=== PATIENT | female | born 1945 | race Caucasian/White ===

== ENCOUNTER → 2023-09-08 13:35 | Outpatient (REF) | payer OTHER, SELFPAY ==
[2023-09-08 15:43] LABS: % Basophils 0.6 % (0-2); % Immature Granulocytes 0.3 % (0-0.5); % Lymphocytes 8.8 % (20.5-51.1); % Monocytes 8.4 % (1.7-9.3); % Neutrophils 80.9 % (42.2-75.2); Absolute Basophils 0.1 10^3/uL (0-0.2); Absolute Eosinophils 0.1 10^3/uL (0-0.7); Absolute Lymphocytes 0.8 10^3/uL (1.2-3.4); Absolute Monocytes 0.8 10^3/uL (0.1-0.6); Absolute Neutrophils 7.7 10^3/uL (1.4-6.5); Hematocrit 31.9 % (37.0-47.0); Hemoglobin 11.4 g/dL (12.0-16.0); Mean Corp Hgb Conc. 35.7 g/dL (33.0-37.0); Mean Corpuscular Hgb 35.2 pg (27.0-31.0); Mean Corpuscular Volume 98.5 fL (81.0-99.0); Mean Platelet Volume 8.8 fL (7.4-10.4); Nucleated Red Blood Cells % 0 %; Platelet Count 225 10^3/uL (130-400); Red Blood Cell Count 3.24 10^6/uL (4.20-5.40); Red Cell Dist. Width 14.3 % (11.5-14.5); White Blood Cell Count 9.6 10^3/uL (4.8-10.8)
[2023-09-08 15:57] LABS: ALT (SGPT) 17 U/L (0-35); AST (SGOT) 24 U/L (14-36); Alkaline Phosphatase 69 U/L (38-126); Blood Urea Nitrogen 31 mg/dl (7-17); Carbon Dioxide 26 mmol/L (22-30); Chloride 97 mmol/L (98-107); Glucose 78 mg/dl (70-99); Potassium 3.9 mmol/L (3.5-5.1); Sodium 132 mmol/L (135-145); Total Bilirubin 0.6 mg/dl (0.2-1.3); Total Protein 6.4 g/dl (6.3-8.2); eGFR 32.81
== END ==
LOC: HWLAB 13:35
PROVIDERS: ATTENDING PHYSICIAN Internal Medicine Hematology & Oncology; FAMILY PHYSICIAN Family Medicine
DX: C14.8 Malignant neoplasm of overlapping sites of lip, oral cavity and pharynx (principal)
CPT/HCPCS: 36415; 80053; 83735; 85025

== ENCOUNTER → 2023-12-03 11:18 | Outpatient (REF) | payer OTHER, SELFPAY ==
[2023-12-03 14:48] LABS: % Basophils 0.5 % (0-2); % Eosinophils 2.8 % (0-6); % Immature Granulocytes 0.5 % (0-0.5); % Lymphocytes 12.8 % (20.5-51.1); % Neutrophils 74.4 % (42.2-75.2); Absolute Eosinophils 0.2 10^3/uL (0-0.7); Absolute Lymphocytes 0.7 10^3/uL (1.2-3.4); Absolute Monocytes 0.5 10^3/uL (0.1-0.6); Absolute Neutrophils 4.3 10^3/uL (1.4-6.5); Hematocrit 35.4 % (37.0-47.0); Hemoglobin 12.3 g/dL (12.0-16.0); Mean Corp Hgb Conc. 34.7 g/dL (33.0-37.0); Mean Corpuscular Hgb 31.9 pg (27.0-31.0); Mean Corpuscular Volume 91.9 fL (81.0-99.0); Nucleated Red Blood Cells % 0 %; Platelet Count 208 10^3/uL (130-400); Red Blood Cell Count 3.85 10^6/uL (4.20-5.40); Red Cell Dist. Width 12.2 % (11.5-14.5); White Blood Cell Count 5.8 10^3/uL (4.8-10.8)
[2023-12-03 15:23] LABS: ALT (SGPT) 26 U/L (0-35); AST (SGOT) 26 U/L (14-36); Albumin 4.3 g/dl (3.5-5.0); Alkaline Phosphatase 88 U/L (38-126); Blood Urea Nitrogen 23 mg/dl (7-17); Calcium 10.6 mg/dl (8.4-10.2); Carbon Dioxide 26 mmol/L (22-30); Chloride 100 mmol/L (98-107); Glucose 101 mg/dl (70-99); Potassium 3.8 mmol/L (3.5-5.1); Sodium 134 mmol/L (135-145); Total Bilirubin 0.7 mg/dl (0.2-1.3); Total Protein 6.7 g/dl (6.3-8.2); eGFR 46.05
== END ==
LOC: HWLAB 11:18
PROVIDERS: ATTENDING PHYSICIAN Internal Medicine Hematology & Oncology; FAMILY PHYSICIAN Family Medicine
DX: C14.8 Malignant neoplasm of overlapping sites of lip, oral cavity and pharynx (principal); E83.42 Hypomagnesemia
CPT/HCPCS: 36415; 80053; 85025

== ENCOUNTER → 2024-03-03 10:18 | Outpatient (REF) | payer OTHER, SELFPAY ==
[2024-03-03 10:30] VITALS: BP 144/67; BP_SYST 58
[2024-03-03 11:50] VITALS: BP 140/57
== END ==
LOC: RADI 10:18
PROVIDERS: ATTENDING PHYSICIAN Internal Medicine Hematology & Oncology
DX: Z45.2 Encounter for adjustment and management of vascular access device (principal); Z85.818 Personal history of malignant neoplasm of other sites of lip, oral cavity, and pharynx
CPT/HCPCS: 36590; 77001

== ENCOUNTER → 2024-03-18 10:41 | Outpatient (REF) | payer OTHER, SELFPAY ==
--- NOTE | 2024-03-18 11:00 | W.PN.UPDATE ---
Update Note
Progress Note Update
78 yo female presents for site check. She had a port removed on 03/03/24. She is on Eliquis and has substantial bruising. She noted a bump over the incision. She was sent but cardiology to evaluate for retained FB
PE: There is right chest wall bruising. There is a hematoma in the pocket. The area is indurated with central bogginess. No warmth or erythema to suggest infection
Images reviewed from port removal-No foreign body left in pocket
A/P: 78 yo female s/p port removal with port pocket hematoma
Recommend warm compresses to area-should resolve spontaneously. If symptoms worsen can consider aspiration although not ideal with pt still on Eliquis
== END ==
LOC: RADI 10:41
PROVIDERS: ATTENDING PHYSICIAN Radiology Vascular & Interventional Radiology; FAMILY PHYSICIAN Family Medicine
DX: L76.32 Postprocedural hematoma of skin and subcutaneous tissue following other procedure (principal); Y83.8 Other surgical procedures as the cause of abnormal reaction of the patient, or of later complication, without mention of misadventure at the time of the procedure; Z79.01 Long term (current) use of anticoagulants

== ENCOUNTER → 2024-05-19 11:32 | Outpatient (REF) | payer OTHER, SELFPAY ==
[2024-05-19 15:37] LABS: Blood Urea Nitrogen 28 mg/dl (7-17)
== END ==
LOC: HWLAB 11:32
PROVIDERS: ATTENDING PHYSICIAN Radiology Radiation Oncology; FAMILY PHYSICIAN Family Medicine
DX: C06.2 Malignant neoplasm of retromolar area (principal)
CPT/HCPCS: 36415; 82565; 84520

== ENCOUNTER → 2024-05-20 14:12 | Outpatient (REF) | payer OTHER, SELFPAY | LOC: HWRAD 14:12 | PROVIDERS: ATTENDING PHYSICIAN Radiology Radiation Oncology | DX: C06.2 Malignant neoplasm of retromolar area (principal) | CPT/HCPCS: 70491; Q9967 ==

== ENCOUNTER → 2024-11-07 16:41 | Outpatient (REF) | payer OTHER, SELFPAY | LOC: CLAB 16:41 | PROVIDERS: ATTENDING PHYSICIAN Otolaryngology | DX: R22.0 Localized swelling, mass and lump, head (principal) | CPT/HCPCS: 88305 ==

== ENCOUNTER 2025-02-12 14:01 | Emergency (ER) | payer OTHER, SELFPAY ==
[2025-02-12 14:11] VITALS: BP 157/69
--- NOTE | 2025-02-12 14:12 | ED.MUSCINJ ---
HPI-Injury
General
Chief Complaint: Fall
Source: patient
Exam Limitations: none
Time Seen by Provider: 02/12/25 14:05
History of Present Illness-Injury
Initial Injury comments:
79-year-old female presents via EMS from [facility] after a fall. She states she lost her balance going from room to room and fell. She complains of left wrist pain. She is on Eliquis and hit her head. She notes mild soreness to the left
side of her head. No loss of consciousness. No chest pain or shortness of breath. No other complaints at this time
Past History
Past History
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
ED Past Surgical History: Other (R power port)
Social History
Tobacco: Non-smoker
Alcohol: None
Phy Exam
Physical Exam
Physical Exam:
General: Well-appearing female no acute respiratory distress
HEENT: Normocephalic atraumatic no obvious scalp abrasion pupils equal round reactive to light
Heart: Regular rate and rhythm
Lungs: Clear
Musculoskeletal exam: Spine is nontender. Left wrist is swollen and slightly tender
No deformities to the legs with good range of motion
Injury Course
Orders/Labs/Results
Orders:
Orders
02/12/25 14:03
Electrocardiogram (*1) Urgent
Reason for Study: Vertigo / Dizzy
CT Head W/o Iv Contrast Urgent
Comment:
Reason For Exam: fall with head strike on blood thinner
EKG- Treatment ONCE
CR Wrist - Left Min 3 Views Urgent
Comment:
Reason For Exam: left wrist decreaed ROM and deformity
02/12/25 14:06
CT Cervical Spine W/o Iv Contr Urgent
Comment:
Reason For Exam: fall
02/12/25 18:18
Weikert Wrist Left-Treatment ONCE
02/12/25 18:20
Acetaminophen [Tylenol] 650 mg PO NOW STA
MDM/Problems Addressed
Differential Diagnosis Includes:
Mechanical fall left wrist pain and head strike on Eliquis. Consider intracranial hemorrhage or skull fracture or cervical spine injury. CT of the head and cervical spine ordered. X-ray left wrist pending. EKG was ordered through triage which
shows sinus rhythm without ischemic change
*Pulse Oximetry
Patient hypoxic: no
*Critical Care Note
Total Time (30-74mins, 75-104mins- exclusive of procedures): Not Applicable
Update Note
Update Note:
CT of head and cervical spine negative x-ray left wrist does demonstrate nondisplaced distal radial styloid fracture. This was treated with universal splint. Family now accompanies the patient. They were given the information. Stable for
discharge back to facility.
ED Attending Note
-
Portions of this chart may have been created with voice recognition software.� Occasional wrong word or��sound alike� substitutions may have occurred due to the inherent limitations of voice recognition software.
Discharge Plan
Departure
Patient Disposition: Home (Routine Discharge)
Date of Disposition: 02/12/25
Time of Disposition: 18:24
Patient with high blood pressure during this ER visit?: No
Discharge Problem:
Distal radius fracture, left
Instructions: Muscle, joint, and bone pain - Discharge instructions
Prescriptions:
No Action
famotidine 20 mg Tablet
20 mg PO BID
rivastigmine tartrate 3 mg Capsule
3 mg PO BID
ezetimibe [Zetia] 10 mg Tablet
10 mg PO DAILY
Multaq 400 mg Tablet
400 mg PO BID
Eliquis 5 mg Tablet
5 mg PO BID
acetaminophen 325 mg tablet
650 mg PO Q4HPRN
metoprolol succinate 25 mg tablet extended release 24 hr
25 mg PO DAILY
atorvastatin [Lipitor] 20 mg tablet
20 mg PO HS Qty: 30 0RF
enalapril maleate 20 mg Tablet
20 mg PO BID Qty: 0 0RF
Rx Instructions:
Hold for SBP <105
cetirizine 10 mg Tablet
10 mg PO DAILY
hydrochlorothiazide 12.5 mg Tablet
12.5 mg PO DAILY
Referrals:
Aspen Pickard MD [Family Provider, Internal Medicine]
Activity Restrictions/Additional Instructions:
Keep splint on. Follow-up with orthopedics. Return if worse otherwise
Interventions
Interventions:
*Risk Screen - Suicide Last Done: 02/12/25 14:14
*General Assessment Last Done: 02/12/25 14:14
*Neglect/Abuse Screening Last Done: 02/12/25 14:14
*ED- Fall Risk Assessment Last Done: 02/12/25 14:14
*ED COVID-19 Vaccine History Last Done: 02/12/25 14:14
ED-Musculoskeletal Assessment Last Done: 02/12/25 14:14
ED- Neurological Assessment Last Done: 02/12/25 14:14
ED-Skin Assessment Last Done: 02/12/25 14:14
Discharge Date and Time
Print Language: GUINEAN
[2025-02-12 14:14] VITALS: BP 157/69; BMI 28.8
[2025-02-12 15:00] VITALS: BP 160/67
[2025-02-12 16:36] VITALS: BP 159/73
--- NOTE | 2025-02-12 18:51 | EDRN ---
this RN called [facility] at [phone] and spoke to the receiving nurse and gave verbal report and notified the nurse that the pt was going to be sent back via transport
[2025-02-12] MEDS: TYLENOL 650 MG PO (18:58)
== END 2025-02-12 19:36 ==
LOC: EMR 14:01
PROVIDERS: EMERGENCY PHYSICIAN Student in an Organized Health Care Education/Training Program; FAMILY PHYSICIAN Internal Medicine
DX: S52.572A Other intraarticular fracture of lower end of left radius, initial encounter for closed fracture (principal); S09.90XA Unspecified injury of head, initial encounter; W19.XXXA Unspecified fall, initial encounter; Z79.01 Long term (current) use of anticoagulants
CPT/HCPCS: 29125; 99284; 70450; 72125; 73110; 93005